=== PATIENT | male | born 1970 | race Caucasian/White ===

== ENCOUNTER 2023-08-13 06:06 | Observation (INO) ==
--- NOTE | 2023-08-13 06:41 | Emergency Department Note ---
Impression & Plan Chest pain ED Provider Note NAME: SEB GRIFFITHS AGE: 53 SEX: M : 1970 ARRIVES VIA: Walk-In INFORMANT: Patient ED PROVIDER(S): Harry Arroyo DO CHIEF COMPLAINT: Chest pain HPI: Patient is a 53-year-old male with a past medical history of diabetes, hypertension, hyperlipidemia, and CAD with an UT x2 who presents to the ER for midsternal chest pressure which started earlier today around 4 AM. It was associated with left arm pain and shortness of breath. [place] similar to his previous MIs. He did roll back over in bed and continued and consequently he got up took 2 nitro and it resolved. He denies any nausea, vomiting, or diarrhea. He was sweaty. Denies any dysuria, urgency, or frequency ADDITIONAL HISTORY OBTAINED: Per HPI Chronic Medical/Social Conditions Affecting Care: Per HPI PAST MEDICAL HISTORY:See Below PAST SURGICAL HISTORY:See Below FAMILY HISTORY:See Below SOCIAL HISTORY:See Below HOME MEDICATIONS:See Below ALLERGIES:See Below VITALS:See Below PHYSICAL EXAMINATION: GENERAL: Sitting up in bed, alert, well appearing, well nourished, no distress, non-toxic EYE EXAM: normal conjunctiva. OROPHARYNX: mucous membranes are moist NECK: supple, no nuchal rigidity, no adenopathy, non-tender LUNGS: Clear to auscultation. Normal chest wall mechanics HEART: no murmurs, S1 normal and S2 normal ABDOMEN: abdomen soft, non-tender, normo-active bowel sounds, no masses, no rebound or guarding. UPPER EXTREMITIES: upper extremities are grossly normal. LOWER EXTREMITIES: No pitting edema. NEURO EXAM: Normal sensorium, cranial nerves II-XII grossly intact, normal speech, no gross weakness of arms, no gross weakness of legs. MEDICAL DECISION MAKING: Patient is a 53-year-old male with a past medical history of diabetes, hypertension, hyperlipidemia and UT x2 that presents the ER for midsternal chest tightness associated with shortness of breath and arm pain which resolved after 2 nitros. IV was established blood work obtained. Labs showed no significant leukocytosis or anemia. BMP with significant hypokalemia at 2.5. This was repleted with 40 mEq orally and 20 mEq through the IV. Mag was 1.7. Troponin was negative. Lipase was normal. EKG was nondiagnostic. Chest x-ray was clean. He was given aspirin. He was monitored closely in the ER. Pain-free. Discussed the case with Dr. Pedro from the [facility] for further evaluation management and treatment. External Records Reviewed: None Consults/Care Managements Discussions: Per MDM Triage Nursing notes reviewed. Limited review of prior medical records performed Vital Signs: reviewed and remarkable for HTN Differential diagnosis: Patient denies diabetes, hypertension, hyperlipidemia, CAD, history of sudden at a young age, and smoking. ER treatment provided: See below Diagnostics interpreted by me include EKG and cardiac monitoring as listed below: -Cardiac Monitoring: An order was placed for continuous cardiac monitoring. The monitor shows a rate of 80 with sinus rhythm. -ECG: Sinus rhythm rate 85 Normal axis First-degree AV block QTc 476 -Laboratory studies:Interpreted by me as stated above in MDM and shown below. Imaging studies: Xrays: As interpreted by me: Portable AP upright 1 view of the chest shows no focal infiltrate CTs show: none Procedures:none Critical Care: None Past Med/Surg History Medical History (Updated 08/13/23 @ 12:06 by Harry Arroyo DO) Obesity, Class III, BMI 40-49.9 (morbid obesity) Hypertension associated with diabetes Diabetes mellitus type 2 in obese Coronary artery disease Social History Smoking Status: Never smoker Feels Safe at Home: Yes Allergies Allergies Allergy/AdvReac Type Severity Reaction Status Date / Time latex Allergy Intermediate Rash Unverified 08/13/23 08:38 Penicillins Allergy Intermediate Blisters Unverified 08/13/23 08:38 and rash Home Meds Home Medications Medication Instructions Recorded Confirmed allopurinol 100 mg tablet 200 mg PO QAM 08/13/23 08/13/23 amiloride 5 mg tablet 10 mg PO QAM 08/13/23 08/13/23 aspirin 81 mg tablet,delayed 162 mg PO QAM 08/13/23 08/13/23 release atorvastatin 80 mg tablet 80 mg PO QAM 08/13/23 08/13/23 bumetanide 1 mg tablet 0.5 mg PO QAM 08/13/23 08/13/23 docusate sodium 100 mg capsule 200 mg PO BID 08/13/23 08/13/23 famotidine 40 mg tablet 40 mg PO BID 08/13/23 08/13/23 insulin glargine 100 unit/mL (3 60 unit subcut HS 08/13/23 08/13/23 mL) subcutaneous pen (Basaglar KwikPen U-100 Insulin) insulin lispro 100 unit/mL 0 - 100 unit subcut TIDWMEAL 08/13/23 08/13/23 subcutaneous pen (Humalog KwikPen (U-100) Insulin) isosorbide mononitrate 30 mg 30 mg PO HS 08/13/23 08/13/23 tablet,extended release 24 hr linaclotide 290 mcg capsule 290 mcg PO QAM 08/13/23 08/13/23 (Linzess) metolazone 2.5 mg tablet 2.5 mg PO .EVERY OTHER DAY 08/13/23 08/13/23 metoprolol succinate 25 mg 25 mg PO HS 08/13/23 08/13/23 tablet,extended release 24 hr nitroglycerin 0.4 mg sublingual See Rx Instructions .Route .COMPLEX 08/13/23 08/13/23 tablet nortriptyline 10 mg capsule 30 mg PO HS 08/13/23 08/13/23 ondansetron HCl 4 mg tablet 4 mg PO Q8H PRN Nausea And Vomiting 08/13/23 08/13/23 oxycodone 5 mg tablet 7.5 mg PO Q12H PRN Pain 08/13/23 08/13/23 pantoprazole 40 mg tablet,delayed 40 mg PO QAM 08/13/23 08/13/23 release phentermine 37.5 mg capsule 37.5 mg PO QAM 08/13/23 08/13/23 potassium chloride 20 mEq See Rx Instructions .Route .COMPLEX 08/13/23 08/13/23 tablet,extended release(part/cryst) (Klor-Con M) rifaximin 550 mg tablet (Xifaxan) 550 mg PO BID 08/13/23 08/13/23 sennosides 8.6 mg tablet (senna) 17.2 mg PO HS 08/13/23 08/13/23 spironolactone 50 mg tablet 50 mg PO QAM 08/13/23 08/13/23 sulfamethoxazole 800 1 tab PO BID 08/13/23 08/13/23 mg-trimethoprim 160 mg tablet tamsulosin 0.4 mg capsule 0.4 mg PO BID 08/13/23 08/13/23 testosterone cypionate 200 mg/mL 50 mg IM WK 08/13/23 08/13/23 intramuscular oil tirzepatide 7.5 mg/0.5 mL 7.5 mg subcut WK 08/13/23 08/13/23 subcutaneous pen injector (Sury) topiramate 50 mg tablet 50 mg PO BID 08/13/23 08/13/23 trazodone 100 mg tablet 100 mg PO HS 08/13/23 08/13/23 Results & Data (ED) Vital Signs Vital Signs - 24 hr 08/13/23 06:10 08/13/23 06:20 08/13/23 06:21 Pulse Rate 87 86 89 Pulse Rate from SpO2 Sensor Pulse Rhythm Respiratory Rate 14 15 Respiratory Effort / Characteristics Non-Labored Spontaneous Respiratory Depth Normal Blood Pressure 142/80 H 134/69 Blood Pressure Mean 100 90 Pulse Oximetry 100 98 Oxygen Delivery Method Room Air Sepsis New/Unexplained Change in Mental Status No Sepsis Action Taken by Nursing No Action Required 08/13/23 07:08 08/13/23 07:10 08/13/23 08:30 Pulse Rate 84 82 82 Pulse Rate from SpO2 Sensor 82 Pulse Rhythm Regular Respiratory Rate 12 16 19 Respiratory Effort / Characteristics Respiratory Depth Blood Pressure Blood Pressure Mean Pulse Oximetry 98 96 98 Oxygen Delivery Method Room Air Sepsis New/Unexplained Change in Mental Status Sepsis Action Taken by Nursing 08/13/23 10:30 08/13/23 10:46 08/13/23 11:40 Pulse Rate 81 81 77 Pulse Rate from SpO2 Sensor Pulse Rhythm Respiratory Rate 21 19 Respiratory Effort / Characteristics Respiratory Depth Blood Pressure 138/68 Blood Pressure Mean 91 Pulse Oximetry 100 100 Oxygen Delivery Method Room Air Sepsis New/Unexplained Change in Mental Status Sepsis Action Taken by Nursing Laboratory Data 08/13/23 06:29 08/13/23 06:29 Lab Results 08/13/23 08/13/23 Range/Units 06:29 11:12 WBC 8.73 (4.8-10.8) K/ul RBC 5.22 (4.70-6.10) M/uL Hgb 12.8 L (14.0-18.0) g/dl Hct 40.0 L (42.0-52.0) % MCV 76.6 L (80.0-100.0) fL MCH 24.5 L (25.0-34.0) pg MCHC 32.0 (32.0-36.0) g/dL RDW Std Deviation 46.2 (36.4-46.3) fL RDW Coeff of Mindi 16.8 H (11.5-14.5) % Plt Count 164 (130-400) K/uL MPV 9.8 (9.4-12.4) fL Immature Gran % (Auto) 0.3 % Neut % (Auto) 78.1 % Lymph % (Auto) 9.7 % Brooke % (Auto) 11.2 % Eos % (Auto) 0.2 % Baso % (Auto) 0.5 % Neut # (Auto) 6.81 H (1.40-6.50) K/uL Lymph # (Auto) 0.85 L (1.20-3.40) K/uL Brooke # (Auto) 0.98 H (0.11-0.59) K/uL Eos # (Auto) 0.02 (0.00-0.50) K/uL Baso # (Auto) 0.04 (0.00-0.20) K/uL Immature Gran # (Auto) 0.03 (0.01-0.20) K/uL Sodium 134 L (136-145) mmol/L Potassium 2.5 L* (3.5-5.1) mmol/L Chloride 98 (98-107) mmol/L Carbon Dioxide 25 (21-32) mmol/L Anion Gap 11 (3-11) BUN 21 (6-23) mg/dl Creatinine 0.80 (0.6-1.4) mg/dl Est Cr Clr Drug Dosing 140.4 ml/min Est GFR ( Amer) 116.6 ml/min Est GFR (Non-Af Amer) 100.6 ml/min BUN/Creatinine Ratio 26.3 H (10-20) Glucose 56 L (70-99(Fasting)) mg/dl POC Glucose 103 H (70-99) mg/dl Calcium 9.0 (8.6-10.3) mg/dl Magnesium 1.7 (1.7-2.4) mg/dl Total Bilirubin 0.5 (0.2-1.0) mg/dl AST 29 (13-39) U/L ALT 23 (7-52) U/L Alkaline Phosphatase 144 H (34-104) U/L Troponin I High Sens 12.7 (0-20) pg/ml Total Protein 7.0 (6.0-8.3) gm/dl Albumin 3.9 (3.4-5.0) gm/dl Globulin 3.1 (2.5-4.0) gm/dl Albumin/Globulin Ratio 1.3 (0.9-2) Lipase 90 H (11-82) U/L Administered Medications Discontinued Medications Aspirin (Aspirin Chew 324 Mg) 324 mg PO NOW STA Stop: 08/13/23 06:43 Last Admin: 08/13/23 07:00 Dose: 324 mg Documented By: CECILIO Potassium Chloride (K Jaspal / Wtr) 10 meq in 100 mls @ 100 mls/hr IV Q1H SETH Stop: 08/13/23 09:59 Last Infusion: 08/13/23 10:39 Dose: Infused Documented By: Admin: 08/13/23 09:10 Dose: 100 mls/hr Documented By: Infusion: 08/13/23 09:06 Dose: Infused Documented By: Admin: 08/13/23 08:06 Dose: 100 mls/hr Documented By: CECILIO Potassium Chloride (Potassium Chloride Crtab 20 Meq Tabcr) 40 meq PO NOW STA Stop: 08/13/23 08:01 Last Admin: 08/13/23 08:06 Dose: 40 meq Documented By: CECILIO Imaging Data Radiologist's Impression: Chest X-Ray 08/13/23 06:15 XR chest 1V portable CLINICAL HISTORY: Chest pain, nonspecific. COMPARISON STUDY: No previous studies for comparison. FINDINGS: Lung volumes are normal. Lungs are clear. There is no pneumothorax or pleural effusion. Mild cardiomegaly. Mediastinal contours are normal. There is no evidence for pulmonary edema. IMPRESSION: No acute cardiopulmonary findings. ACT 112: Negative or not required by law. Electronically signed by: Man Santillan M.D. 08/13/2023 7:45 AM Discharge Plan Visit Data Chief Complaint: Cardiac Assessment Stated Complaint: CHEST PAIN AND DOWN L SIDE ED Provider: Harry Arroyo Discharge Problem: Chest pain Forms Stand Alone Forms: [facility] Prescriptions Prescriptions: No Action insulin lispro [Humalog KwikPen Insulin] 100 unit/mL insulin pen 0 - 100 unit SUBCUT TIDWMEAL Rx Instructions: Per sliding scale metolazone 2.5 mg tablet 2.5 mg PO .EVERY OTHER DAY atorvastatin 80 mg tablet 80 mg PO QAM sennosides [senna] 8.6 mg tablet 17.2 mg PO HS ondansetron HCl 4 mg tablet 4 mg PO Q8H PRN (Reason: Nausea And Vomiting) famotidine 40 mg tablet 40 mg PO BID isosorbide mononitrate 30 mg tablet extended release 24 hr 30 mg PO HS allopurinol 100 mg tablet 200 mg PO QAM sulfamethoxazole-trimethoprim 800-160 mg tablet 1 tab PO BID Rx Instructions: Start Date 08/05/23 - Pt states they have not completed the medication but they're not sure how many they have left. They have been traveling. aspirin 81 mg tablet,delayed release (DR/EC) 162 mg PO QAM amiloride 5 mg tablet 10 mg PO QAM potassium chloride [Klor-Con M20] 20 mEq tablet,ER particles/crystals See Rx Instructions .ROUTE .COMPLEX Rx Instructions: Take 40meq by mouth in the morning and 20meq by mouth in the evening tamsulosin 0.4 mg capsule 0.4 mg PO BID trazodone 100 mg tablet 100 mg PO HS pantoprazole 40 mg tablet,delayed release (DR/EC) 40 mg PO QAM nortriptyline 10 mg capsule 30 mg PO HS nitroglycerin 0.4 mg tablet, sublingual See Rx Instructions .ROUTE .COMPLEX Rx Instructions: Per patient , he probably needs a new script as his is . PLACE 1 TABLET UNDER THE TONGUE NEEDED MAY REPEAT EVERY 5 MINUTES X 3 docusate sodium 100 mg capsule 200 mg PO BID bumetanide 1 mg tablet 0.5 mg PO QAM metoprolol succinate 25 mg tablet extended release 24 hr 25 mg PO HS testosterone cypionate 200 mg/mL oil 50 mg IM WK Rx Instructions: Tuesdays phentermine 37.5 mg capsule 37.5 mg PO QAM spironolactone 50 mg tablet 50 mg PO QAM oxycodone 5 mg tablet 7.5 mg PO Q12H MDD 15mg PRN (Reason: Pain) topiramate 50 mg tablet 50 mg PO BID insulin glargine [Basaglar KwikPen U-100 Insulin] 100 unit/mL (3 mL) insulin pen 60 unit SUBCUT HS Xifaxan 550 mg tablet 550 mg PO BID Linzess 290 mcg capsule 290 mcg PO QAM Mounjaro 7.5 mg/0.5 mL pen injector 7.5 mg SUBCUT WK Rx Instructions: Tuesdays Referrals Referrals: PCP,NO [Physician] - Discharge Problem: Chest pain Qualifiers: Chest pain type: unspecified Qualified Code(s): R07.9 - Chest pain, unspecified
[2023-08-13] MEDS ORDERED: ASPIRIN CHEW 324 MG PO STA (06:42)
[2023-08-13 07:05] LABS: Basophils # (auto) 0.04 K/uL (0.00-0.20); Basophils % (auto) 0.5 %; Eosinophils # (auto) 0.02 K/uL (0.00-0.50); Eosinophils % (auto) 0.2 %; Hemoglobin 12.8 g/dl (14.0-18.0); Immature Granulocytes # (auto) 0.03 K/uL (0.01-0.20); Immature Granulocytes % (auto) 0.3 %; Lymphocytes # (auto) 0.85 K/uL (1.20-3.40); Lymphocytes % (auto) 9.7 %; Mean Corpuscular Hemoglobin 24.5 pg (25.0-34.0); Mean Corpuscular Volume 76.6 fL (80.0-100.0); Mean Platelet Volume 9.8 fL (9.4-12.4); Monocytes # (auto) 0.98 K/uL (0.11-0.59); Monocytes % (auto) 11.2 %; Neutrophils # (auto) 6.81 K/uL (1.40-6.50); Neutrophils % (auto) 78.1 %; Platelet Count 164 K/uL (130-400); RDW Coefficient of Variation 16.8 % (11.5-14.5); RDW Standard Deviation 46.2 fL (36.4-46.3); Red Blood Count 5.22 M/uL (4.70-6.10); White Blood Count 8.73 K/ul (4.8-10.8)
[2023-08-13 07:25] LABS: Albumin Globulin Ratio 1.3 (0.9-2); Albumin Level 3.9 gm/dl (3.4-5.0); BUN Creatinine Ratio 26.3 (10-20); Bilirubin,Total 0.5 mg/dl (0.2-1.0); Creatinine Clr Calc Pharmacy 140.4 ml/min; Est GFR (African American) 116.6 ml/min; Est GFR (Non-African American) 100.6 ml/min; Globulin 3.1 gm/dl (2.5-4.0); Potassium 2.5 mmol/L (3.5-5.1); Troponin I High Sensitivity 12.7 pg/ml (0-20)
--- NOTE | 2023-08-13 07:47 | XRay Report ---
XR chest 1V portable CLINICAL HISTORY: Chest pain, nonspecific. COMPARISON STUDY: No previous studies for comparison. FINDINGS: Lung volumes are normal. Lungs are clear. There is no pneumothorax or pleural effusion. Mil d cardiomegaly. Mediastinal contours are normal. There is no evidence for pulmonary edema. IMPRESSION: No acute cardiopulmonary findings. ACT 112: Negative or not required by law. Electronically signed by: Man Santillan M.D. 08/13/2023 7:45 AM
[2023-08-13] MEDS ORDERED: POTASSIUM CHLORIDE CRTAB 20 MEQ TABCR PO STA (08:00)
[2023-08-13] MEDS: POTASSIUM CHLORIDE / WTR 10 MEQ/100 ML PLCT IV SCH ×2 (08:06→09:10)
--- NOTE | 2023-08-13 08:26 | History & Physical Report ---
Date of Service August 13, 2023 Assessment & Plan (1) Chest pain radiating to arm: Plan: History of CAD and moderately suspicious episode of SSCP radiating to L arm and jaw associated with diaphoresis, onset while sleeping, resolved after 2x SL NTG Has 3+ risk factors for CAD, said he has had MIx2 last 15 years ago had last coronary angiogram at that time but has never had stents or heart surgery. EKG is reassuring with no evidence of ACS Serial troponin ASA given -continue high intensity statin, metoprolol, ARB, Imdur -tele monitoring -moderate risk of MACE in near future based on presentation and risk factors. Cardiac stress test indicated in the near future. (2) Coronary artery disease: Plan: See above (3) Hypokalemia: Plan: Severe, K 2.5 on ED admission labs Chronic, is on amiloride spironolactone and potassium chloride 40 in am and 20 in PM at home. Replaced in ED with 40 mg po in AM and 20 mg IV -ordered 40 mg po -ordered repeat potassium check -added mag - initial level normal, but a second add-on was mildly low - ordered 1g magnesium IV. Has chronic hypomagnesemia as well and usually takes mag ox (4) Diabetes mellitus type 2 in obese: Plan: Continue diabetic diet, chemsticks, basal-bolus insulin while inpatient (5) Hypertension associated with diabetes: Plan: Well controlled on meds listed above. Mildly hypertensive in AM in ED because did not take his AM meds, improved later after meds. (6) Hypoglycemia: Plan: BG 60 on ED CMP, asymptomatic. Did NOT take glargine last night because ate little and did not have glucometer -chemstick stat - 100. Ordered diet. (7) Obesity, Class III, BMI 40-49.9 (morbid obesity): Plan: BMI 40.6 with diabetes type 2, HTN Plan tele admission, observation History of Present Illness Primary Care Provider: MARCELINO LEACH - [facility] [place] - endo [facility] Jame Hurtado - cardiology - unfortunately recently , per patient 53 y/o man with type 2 DM, HTN, CAD with history of [place] x 2 developed substernal chest pain early today around 4 AM. Initially tried to roll over and ignore it but pain persisted, took 2x SL NTG and pain resolved. Pain free now. Chest pain was substernal radiating to L arm and associated with shortness of breath and diaphoresis. [place] similar to pain from prior MIs. Came to ED. When I saw him in ED, had some L posterior neck pain and L posterior shoulder pain but we gave another nitro and it did not change that pain. Currently no nausea, diaphoresis, dyspnea, cough, abdominal pain. Had some nausea after potassium po resolved with zofran, not nauseated now. No diarrhea, no dysuria. Has chronic bilateral LE edema, chronic hypokalemia, on several diuretics and potassium replacement. Had LLE gaona cellulitis recently for which he took bactrim but this has resolved, no longer taking abx. Visiting for a conference. Did not take his glargine last night because he can't find his [employer] CGM and ate little for dinner, but has been using his short acting insulin. Allergies Allergy/AdvReac Type Severity Reaction Status Date / Time latex Allergy Intermediate Rash Unverified 08/13/23 08:38 Penicillins Allergy Intermediate Blisters Unverified 08/13/23 08:38 and rash Home Medications Medication Instructions Recorded Confirmed Type allopurinol 100 mg tablet 200 mg PO QAM 08/13/23 08/13/23 History amiloride 5 mg tablet 10 mg PO QAM 08/13/23 08/13/23 History aspirin 81 mg tablet,delayed 162 mg PO QAM 08/13/23 08/13/23 History release atorvastatin 80 mg tablet 80 mg PO QAM 08/13/23 08/13/23 History bumetanide 1 mg tablet 0.5 mg PO QAM 08/13/23 08/13/23 History docusate sodium 100 mg capsule 200 mg PO BID 08/13/23 08/13/23 History famotidine 40 mg tablet 40 mg PO BID 08/13/23 08/13/23 History insulin glargine 100 unit/mL (3 60 unit subcut HS 08/13/23 08/13/23 History mL) subcutaneous pen (Basaglar KwikPen U-100 Insulin) insulin lispro 100 unit/mL 0 - 100 unit subcut TIDWMEAL 08/13/23 08/13/23 Hist ory subcutaneous pen (Humalog KwikPen (U-100) Insulin) isosorbide mononitrate 30 mg 30 mg PO HS 08/13/23 08/13/23 History tablet,extended release 24 hr linaclotide 290 mcg capsule 290 mcg PO QAM 08/13/23 08/13/23 History (Linzess) metolazone 2.5 mg tablet 2.5 mg PO .EVERY OTHER DAY 08/13/23 08/13/23 History metoprolol succinate 25 mg 25 mg PO HS 08/13/23 08/13/23 History tablet,extended release 24 hr nitroglycerin 0.4 mg sublingual See Rx Instructions .Route .COMPLEX 08/13/23 08/13/23 History tablet nortriptyline 10 mg capsule 30 mg PO HS 08/13/23 08/13/23 History ondansetron HCl 4 mg tablet 4 mg PO Q8H PRN Nausea And Vomiting 08/13/23 08/13/23 History oxycodone 5 mg tablet 7.5 mg PO Q12H PRN Pain 08/13/23 08/13/23 History pantoprazole 40 mg tablet,delayed 40 mg PO QAM 08/13/23 08/13/23 History release phentermine 37.5 mg capsule 37.5 mg PO QAM 08/13/23 08/13/23 History potassium chloride 20 mEq See Rx Instructions .Route .COMPLEX 08/13/23 08/13/23 History tablet,extended release(part/cryst) (Klor-Con M) rifaximin 550 mg tablet (Xifaxan) 550 mg PO BID 08/13/23 08/13/23 History sennosides 8.6 mg tablet (senna) 17.2 mg PO HS 08/13/23 08/13/23 History spironolactone 50 mg tablet 50 mg PO QAM 08/13/23 08/13/23 History tamsulosin 0.4 mg capsule 0.4 mg PO BID 08/13/23 08/13/23 History testosterone cypionate 200 mg/mL 50 mg IM WK 08/13/23 08/13/23 History intramuscular oil tirzepatide 7.5 mg/0.5 mL 7.5 mg subcut WK 08/13/23 08/13/23 History subcutaneous pen injector (Sury) topiramate 50 mg tablet 50 mg PO BID 08/13/23 08/13/23 History trazodone 100 mg tablet 100 mg PO HS 08/13/23 08/13/23 History Past Med/Surg History Medical History Hypomagnesemia Gout Hypokalemia Obesity, Class III, BMI 40-49.9 (morbid obesity) Hypertension associated with diabetes Diabetes mellitus type 2 in obese Coronary artery disease Surgical History (Updated 08/13/23 @ 16:19 by Maura Mata MD) H/O ventral hernia repair H/O exploratory laparotomy Family History (Updated 08/13/23 @ 16:17 by Maura Mata MD) Mother Coronary heart disease Father Coronary heart disease Social History Smoking Status: Never smoker Feels Safe at Home: Yes Review of Systems Review of Systems: All systems reviewed & are unremarkable except as noted in HPI & below Respiratory: says he had sleep apnea testing in the past it was mild he was not recommended to CPAP Physical Exam Physical Exam: PHYSICAL EXAMINATION Last 24h vital signs reviewed, see documentation in flowsheet General: comfortable appearing, no distress, lying on gurney in ED HEENT: Normocephalic, atraumatic, pupils round and equal, sclerae anicteric, no conjunctival injection, moist mucus membranes Lungs: Normal respiratory effort. Clear to auscultation bilaterally. No RRW Heart: Regular rate and rhythm, no murmurs. No JVD Abdomen: obese, large ventral hernia present without strangulation /wide open Soft, nontender, nondistended. Bowel sounds present. Extremities: Warm, dry, well-perfused. 2+ extremity edema. very mild erythema L lower gaona site of cellulitis no warmth tenderness or erythema Neuro: Alert and oriented x 4, face symmetric, moves 4 extremities well Psych: Normal affect and behavior Results & Data Results & Data Vital Signs (Past 12 Hours) Vital Signs Pulse Resp BP Pulse Ox O2 Del Method 08/13/23 07:08 84 12 98 Room Air 08/13/23 06:21 89 08/13/23 06:20 86 15 134/69 98 Room Air 08/13/23 06:10 87 14 142/80 H 100 Laboratory Results Chest X-Ray 08/13/23 06:15 XR chest 1V portable CLINICAL HISTORY: Chest pain, nonspecific. COMPARISON STUDY: No previous studies for comparison. FINDINGS: Lung volumes are normal. Lungs are clear. There is no pneumothorax or pleural effusion. Mild cardiomegaly. Mediastinal contours are normal. There is no evidence for pulmonary edema. IMPRESSION: No acute cardiopulmonary findings. ACT 112: Negative or not required by law. Electronically signed by: Man Santillan M.D. 08/13/2023 7:45 AM 08/13/23 08/13/23 08/13/23 Range/Units 15:39 12:04 11:12 WBC (4.8-10.8) K/ul RBC (4.70-6.10) M/uL Hgb (14.0-18.0) g/dl Hct (42.0-52.0) % MCV (80.0-100.0) fL MCH (25.0-34.0) pg MCHC (32.0-36.0) g/dL RDW Std Deviation (36.4-46.3) fL RDW Coeff of [place] (11.5-14.5) % Plt Count (130-400) K/uL MPV (9.4-12.4) fL Immature Gran % (Auto) % Neut % (Auto) % Lymph % (Auto) % [place] % (Auto) % Eos % (Auto) % Baso % (Auto) % Neut # (Auto) (1.40-6.50) K/uL Lymph # (Auto) (1.20-3.40) K/uL [place] # (Auto) (0.11-0.59) K/uL Eos # (Auto) (0.00-0.50) K/uL Baso # (Auto) (0.00-0.20) K/uL Immature Gran # (Auto) (0.01-0.20) K/uL Sodium (136-145) mmol/L Potassium 3.4 L D (3.5-5.1) mmol/L Chloride (98-107) mmol/L Carbon Dioxide (21-32) mmol/L Anion Gap (3-11) BUN (6-23) mg/dl Creatinine (0.6-1.4) mg/dl Est Cr Clr Drug Dosing ml/min Est GFR ( Amer) ml/min Est GFR (Non-Af Amer) ml/min BUN/Creatinine Ratio (10-20) Glucose (70-99(Fasting)) mg/dl POC Glucose 103 H (70-99) mg/dl Calcium (8.6-10.3) mg/dl Magnesium 1.5 L (1.7-2.4) mg/dl Total Bilirubin (0.2-1.0) mg/dl AST (13-39) U/L ALT (7-52) U/L Alkaline Phosphatase (34-104) U/L Troponin I High Sens 11.2 (0-20) pg/ml Total Protein (6.0-8.3) gm/dl Albumin (3.4-5.0) gm/dl Globulin (2.5-4.0) gm/dl Albumin/Globulin Ratio (0.9-2) Lipase (11-82) U/L 08/13/23 Range/Units 06:29 WBC 8.73 (4.8-10.8) K/ul RBC 5.22 (4.70-6.10) M/uL Hgb 12.8 L (14.0-18.0) g/dl Hct 40.0 L (42.0-52.0) % MCV 76.6 L (80.0-100.0) fL MCH 24.5 L (25.0-34.0) pg MCHC 32.0 (32.0-36.0) g/dL RDW Std Deviation 46.2 (36.4-46.3) fL RDW Coeff of [place] 16.8 H (11.5-14.5) % Plt Count 164 (130-400) K/uL MPV 9.8 (9.4-12.4) fL Immature Gran % (Auto) 0.3 % Neut % (Auto) 78.1 % Lymph % (Auto) 9.7 % [place] % (Auto) 11.2 % Eos % (Auto) 0.2 % Baso % (Auto) 0.5 % Neut # (Auto) 6.81 H (1.40-6.50) K/uL Lymph # (Auto) 0.85 L (1.20-3.40) K/uL [place] # (Auto) 0.98 H (0.11-0.59) K/uL Eos # (Auto) 0.02 (0.00-0.50) K/uL Baso # (Auto) 0.04 (0.00-0.20) K/uL Immature Gran # (Auto) 0.03 (0.01-0.20) K/uL Sodium 134 L (136-145) mmol/L Potassium 2.5 L* (3.5-5.1) mmol/L Chloride 98 (98-107) mmol/L Carbon Dioxide 25 (21-32) mmol/L Anion Gap 11 (3-11) BUN 21 (6-23) mg/dl Creatinine 0.80 (0.6-1.4) mg/dl Est Cr Clr Drug Dosing 140.4 ml/min Est GFR ( Amer) 116.6 ml/min Est GFR (Non-Af Amer) 100.6 ml/min BUN/Creatinine Ratio 26.3 H (10-20) Glucose 56 L (70-99(Fasting)) mg/dl POC Glucose (70-99) mg/dl Calcium 9.0 (8.6-10.3) mg/dl Magnesium 1.7 (1.7-2.4) mg/dl Total Bilirubin 0.5 (0.2-1.0) mg/dl AST 29 (13-39) U/L ALT 23 (7-52) U/L Alkaline Phosphatase 144 H (34-104) U/L Troponin I High Sens 12.7 (0-20) pg/ml Total Protein 7.0 (6.0-8.3) gm/dl Albumin 3.9 (3.4-5.0) gm/dl Globulin 3.1 (2.5-4.0) gm/dl Albumin/Globulin Ratio 1.3 (0.9-2) Lipase 90 H (11-82) U/L ECG Additional Comments: Sinus rhythm, no acute ST changes, nonspecific IVCD. I personally reviewed the EKG tracing Code Status & VTE Plan Code Status Full PG Care Time/CCT Total # of Minutes Spent Total Time Spent with Patient: Total time spent is greater than 50% in coordination of care (as documented) at patient's floor/unit and/or counseling patient: Coding Level of Care Code None Diagnoses Chest pain radiating to arm R07.89 Coronary artery disease I25.10 Hypokalemia E87.6 Diabetes mellitus type 2 in obese E11.69; E66.9 Hypertension associated with diabetes E11.59; I15.2 Hypoglycemia E16.2 Obesity, Class III, BMI 40-49.9 (morbid obesity) E66.01
[2023-08-13 08:52] LABS: Magnesium 1.7 mg/dl (1.7-2.4)
[2023-08-13] MEDS ORDERED: ONDANSETRON INJ 2 MG/ML 2 ML VIAL IV PRN (09:35)
[2023-08-13] MEDS ORDERED: NITROGLYCERIN SL 0.4 MG/TAB TAB SL PRN (11:03)
--- NOTE | 2023-08-13 12:02 | Electrocardiogram Report ---
Test Reason : Blood Pressure : / mmHG Vent. Rate : 085 BPM Atrial Rate : 085 BPM P-R Int : 268 ms QRS Dur : 126 ms QT Int : 400 ms P-R-T Axes : 063 024 064 degrees QTc Int : 476 ms Sinus rhythm with 1st degree A-V block Non-specific intra-ventricular conduction block Abnormal ECG No previous ECGs available Confirmed by Peter Parekh [id number]) on 08/13/2023 12:02:18 PM Referred By: REFERRED SELF Confirmed By:Peter Parekh
[2023-08-13 12:49] LABS: Magnesium 1.5 mg/dl (1.7-2.4)
[2023-08-13 12:55] LABS: Troponin I High Sensitivity 11.2 pg/ml (0-20)
[2023-08-13] MEDS ORDERED: CARBOHYDRATES FOR HYPOGLYCEMIA PO PRN (14:09)
[2023-08-13] MEDS ORDERED: GLUCOSE 40% GEL 15 GM TUBE PO PRN (14:09)
[2023-08-13] MEDS ORDERED: POLYETHYLENE (MIRALAX) 17 GM PACK PO PRN (14:09)
[2023-08-13] MEDS ORDERED: DEXTROSE 50% 50 ML SYRINGE IV PRN (14:09)
[2023-08-13] MEDS ORDERED: MELATONIN 3 MG TAB PO PRN (14:09)
[2023-08-13] MEDS ORDERED: DOCUSATE SODIUM 100 MG CAP PO SCH (14:09)
[2023-08-13] MEDS ORDERED: ACETAMINOPHEN 325 MG TAB PO PRN (14:09)
[2023-08-13] MEDS ORDERED: GLUCOSE 10 TAB/TUBE PO PRN (14:09)
[2023-08-13] MEDS ORDERED: oxyCODONE HCL IR 5 MG TAB (IMMEDIATE RELEASE) PO PRN ×2 (14:09→14:39)
[2023-08-13] MEDS ORDERED: ALUMINUM/MAGNESIUM SUSP 30 ML UDC PO PRN (14:09)
[2023-08-13] MEDS ORDERED: GLUCAGON FOR INJ 1 MG VIAL SQ PRN (14:09)
[2023-08-13] MEDS ORDERED: MAGNESIUM HYDROXIDE SUSP 30 ML UDC PO PRN (14:09)
[2023-08-13] MEDS ORDERED: ATORVASTATIN 40 MG TAB PO SCH (14:30)
[2023-08-13] MEDS ORDERED: allopurinoL 100 MG TAB PO SCH (14:30)
[2023-08-13] MEDS ORDERED: TAMSULOSIN HCL 0.4 MG CAP PO SCH (14:30)
[2023-08-13] MEDS ORDERED: TOPIRAMATE 50 MG TAB PO SCH (14:30)
[2023-08-13] MEDS ORDERED: SPIRONOLACTONE 25 MG TAB PO SCH (14:30)
[2023-08-13] MEDS ORDERED: rifAXIMin 550 MG TABLET PO SCH (14:30)
[2023-08-13] MEDS ORDERED: FAMOTIDINE 40 MG TABLET PO SCH (14:30)
[2023-08-13] MEDS ORDERED: PANTOprazole 40 MG TAB PO SCH (14:30)
[2023-08-13] MEDS ORDERED: POTASSIUM CHLORIDE CRTAB 20 MEQ TABCR PO SCH (14:45)
[2023-08-13] MEDS ORDERED: MAGNESIUM SULFATE / D5W 1 GM/100 ML BAG IV ONE (15:00)
[2023-08-13] MEDS ORDERED: INSULIN ASPART PER UNIT CHARGE SC SCH (16:30)
--- NOTE | 2023-08-13 16:40 | Discharge Summary ---
Date of Service August 13, 2023 Admission HPI Per Admitting Provider 53 y/o man with type 2 DM, HTN, CAD with history of [place] x 2 developed substernal chest pain early today around 4 AM. Initially tried to roll over and ignore it but pain persisted, took 2x SL NTG and pain resolved. Pain free now. Chest pain was substernal radiating to L arm and associated with shortness of breath and diaphoresis. [place] similar to pain from prior MIs. Came to ED. When I saw him in ED, had some L posterior neck pain and L posterior shoulder pain but we gave another nitro and it did not change that pain. Currently no nausea, diaphoresis, dyspnea, cough, abdominal pain. Had some nausea after potassium po resolved with zofran, not nauseated now. No diarrhea, no dysuria. Has chronic bilateral LE edema, chronic hypokalemia, on several diuretics and potassium replacement. Had LLE gaona cellulitis recently for which he took bactrim but this has resolved, no longer taking abx. Visiting for a conference. Did not take his glargine last night because he can't find his [employer] CGM and ate little for dinner, but has been using his short acting insulin. Principal Diagnosis Chest pain, hypokalemia Discharge Exam see H&P unchanged on second visit - appeared comfortable Discharge Data Allergies Allergy/AdvReac Type Severity Reaction Status Date / Time latex Allergy Intermediate Rash Unverified 08/13/23 08:38 Penicillins Allergy Intermediate Blisters Unverified 08/13/23 08:38 and rash Consultations 08/13/23 08:18 ED Decision to Admit Stat Hospital Course (1) Chest pain radiating to arm: History of CAD and moderately suspicious episode of SSCP radiating to L arm and jaw associated with diaphoresis, onset while sleeping, resolved after 2x SL NTG Has 3+ risk factors for CAD, said he has had MIx2 last 15 years ago had last coronary angiogram at that time but has never had stents or heart surgery. EKG is reassuring with no evidence of ACS Serial troponin ASA given -continue high intensity statin, metoprolol, ARB, Imdur -tele monitoring -moderate risk of MACE in near future based on presentation and risk factors. Cardiac stress test indicated. In afternoon stated he wanted to leave and go home krystin, potentially AMA. I went down and talked to him and he agreed to stay long enough for repeat potassium check and dose of IV magnesium. He had already got on the internet and made a cardiology appointment with his clinic at [facility] for Tuesday. Troponins at 0 and 6 hours were normal and remained chest pain free. I ordered repeat potassium stat level and magnesium IV. Apx 3:30 pm paged by ED RN that he wanted to leave AMA at 4 pm even without K result, planned for AMA discharge. Fortunately potassium resulted quickly at 3.4 which is safe level. He will take his usual potassium supplement tonight per routine. I advised a cardiac stress test but cannot offer him a stress test until at least Tuesday and he has close cardiology follow up within a few days so I feel that this is a reasonably safe discharge and he will not agree to stay in any case, thus this is an irregular discharge but not AMA. (2) Coronary artery disease: See above (3) Hypokalemia: Severe, K 2.5 on ED admission labs Chronic, is on amiloride spironolactone and potassium chloride 40 in am and 20 in PM at home. Replaced in ED with 40 mg po in AM and 20 mg IV -ordered 40 mg po -ordered repeat potassium check -added mag - initial level normal, but a second add-on was mildly low - ordered 1g magnesium IV. Has chronic hypomagnesemia as well and usually takes mag ox -got 500 mg IV magnesium before he left (4) Diabetes mellitus type 2 in obese: Continue diabetic diet, chemsticks, basal-bolus insulin while inpatient -resume home regimen (5) Hypertension associated with diabetes: Well controlled on meds listed above. Mildly hypertensive in AM in ED because did not take his AM meds, improved later after meds. (6) Hypoglycemia: BG 60 on ED CMP, asymptomatic. Did NOT take glargine last night because ate little and did not have glucometer -chemstick stat - 100. Ordered diet. (7) Obesity, Class III, BMI 40-49.9 (morbid obesity): BMI 40.6 with diabetes type 2, HTN Plan tele admission, observation Total Time Total Time Spent Total Time Spent (In Minutes): 80 minutes spent on clinical care today including admission and discharge Discharge Plan Discharge Items Patient Disposition: Home - Self-Care Reason For Visit: CHEST PAIN Discharge Diagnosis: chest pain, hypokalemia Activity: Resume your previous activity Non-emergency contact: Primary Care Provider and Welcome Desk Agent Call non-emergency contact if: you have any medication questions and your symptoms worsen Follow-up/Referrals: MARCELINO LEACH [Other] Diet: Carb Consistent or DM2 and Heart Healthy Addtl Attending Provider Instructions: Dear Mr. James, You were evaluated for an episode of chest pain Your EKG was reassuring and high-sensitivity troponin test was negative at 0 and 6 hours Because of your medical history you are considered moderate risk for a major cardiac event in the next few months. Since you have an appointment with your cardiology practice on Tuesday, I think it is safe to return home. They will need to consider whether you should have an expedited cardiac stress test. Seek immediate medical attention if you have recurrent chest pain. Your potassium level was very low at 2.5 We treated you with IV and oral potassium, as well as IV magnesium for mildly low magnesium level Potassium came up to 3.4 after replacement. Take your potassium tonight as usual. Have your doctor recheck your blood electrolytes as soon as possible when you follow up It was a pleasure taking care of you in the hospital Maura Mata MD Pending Studies at Discharge: No Stand-Alone Forms: My [facility] [employer], Smoking Cessation Medications and DC Order Prescriptions: Continued insulin lispro [Humalog KwikPen Insulin] 100 unit/mL insulin pen 0 - 100 unit SUBCUT TIDWMEAL Rx Instructions: Per sliding scale metolazone 2.5 mg tablet 2.5 mg PO .EVERY OTHER DAY atorvastatin 80 mg tablet 80 mg PO QAM sennosides [senna] 8.6 mg tablet 17.2 mg PO HS ondansetron HCl 4 mg tablet 4 mg PO Q8H PRN (Reason: Nausea And Vomiting) famotidine 40 mg tablet 40 mg PO BID isosorbide mononitrate 30 mg tablet extended release 24 hr 30 mg PO HS allopurinol 100 mg tablet 200 mg PO QAM aspirin 81 mg tablet,delayed release (DR/EC) 162 mg PO QAM amiloride 5 mg tablet 10 mg PO QAM potassium chloride [Klor-Con M20] 20 mEq tablet,ER particles/crystals See Rx Instructions .ROUTE .COMPLEX Rx Instructions: Take 40meq by mouth in the morning and 20meq by mouth in the evening tamsulosin 0.4 mg capsule 0.4 mg PO BID trazodone 100 mg tablet 100 mg PO HS pantoprazole 40 mg tablet,delayed release (DR/EC) 40 mg PO QAM nortriptyline 10 mg capsule 30 mg PO HS nitroglycerin 0.4 mg tablet, sublingual See Rx Instructions .ROUTE .COMPLEX Rx Instructions: Per patient , he probably needs a new script as his is . PLACE 1 TABLET UNDER THE TONGUE NEEDED MAY REPEAT EVERY 5 MINUTES X 3 docusate sodium 100 mg capsule 200 mg PO BID bumetanide 1 mg tablet 0.5 mg PO QAM metoprolol succinate 25 mg tablet extended release 24 hr 25 mg PO HS testosterone cypionate 200 mg/mL oil 50 mg IM WK Rx Instructions: Tuesdays phentermine 37.5 mg capsule 37.5 mg PO QAM spironolactone 50 mg tablet 50 mg PO QAM oxycodone 5 mg tablet 7.5 mg PO Q12H MDD 15mg PRN (Reason: Pain) topiramate 50 mg tablet 50 mg PO BID insulin glargine [Basaglar KwikPen U-100 Insulin] 100 unit/mL (3 mL) insulin pen 60 unit SUBCUT HS Xifaxan 550 mg tablet 550 mg PO BID Linzess 290 mcg capsule 290 mcg PO QAM Mounjaro 7.5 mg/0.5 mL pen injector 7.5 mg SUBCUT WK Rx Instructions: Tuesdays Discontinued sulfamethoxazole-trimethoprim 800-160 mg tablet 1 tab PO BID Rx Instructions: Start Date 08/05/23 - Pt states they have not completed the medication but they're not sure how many they have left. They have been traveling. Admission Data Admit Date/Time: 08/13/23 11:49 Attending Provider: Maura Mata Admit Provider: Maura Mata Primary Care Provider: MARCELINO LEACH Other Providers: Maura Mata Coding Level of Care Code INP/OBS EV SAME DAY LV 2,70MIN Diagnoses Chest pain radiating to arm R07.89 Coronary artery disease I25.10 Hypokalemia E87.6 Diabetes mellitus type 2 in obese E11.69; E66.9 Hypertension associated with diabetes E11.59; I15.2 Hypoglycemia E16.2 Obesity, Class III, BMI 40-49.9 (morbid obesity) E66.01
[2023-08-13] MEDS ORDERED: ISOSORBIDE MONO EXTENDED REL 30 MG TABCR PO SCH (21:00)
[2023-08-13] MEDS ORDERED: traZODone HCL 100 MG TAB PO SCH (21:00)
[2023-08-13] MEDS ORDERED: LANTUS PER UNIT CHARGE SQ SCH (21:00)
[2023-08-13] MEDS ORDERED: NORTRIPTYLINE HCL 10 MG CAP PO SCH (21:00)
[2023-08-13] MEDS ORDERED: ENOXAPARIN INJ 40 MG/0.4 ML SYR SQ SCH (21:00)
[2023-08-13] MEDS ORDERED: METOPROLOL SUCC 25MG EXT REL TAB PO SCH (21:00)
[2023-08-13] MEDS ORDERED: SENNA 8.6 MG TAB PO SCH (21:00)
[2023-08-14] MEDS ORDERED: ASPIRIN 81 MG ECTAB PO SCH (09:00)
[2023-08-14] MEDS ORDERED: POTASSIUM CHLORIDE CRTAB 20 MEQ TABCR PO SCH (21:00)
== END 2023-08-13 16:29 | disposition home or self-care (01) ==
LOC: ED 06:06 → EDINP 06:06